=== PATIENT | female | born 2000 | race Caucasian/White ===

== ENCOUNTER 2022-09-14 11:48 | Emergency (ER) | payer OTHER, BC ==
[~2022-09-14] VITALS: Ht 165.1 cm; Wt 64.4 kg
== END 2022-09-14 15:49 | disposition home or self-care (01) ==
LOC: ER 11:48
DX: R53.1 Weakness (principal)

== ENCOUNTER 2022-11-07 08:06 | Emergency (ER) | payer OTHER ==
[~2022-11-07] VITALS: Ht 165.1 cm; Wt 63.5 kg
== END 2022-11-07 09:20 | disposition home or self-care (01) ==
LOC: ER 08:06
DX: K29.70 Gastritis, unspecified, without bleeding (principal)

== ENCOUNTER 2023-04-06 05:42 | Emergency (ER) | payer OTHER ==
[~2023-04-06] VITALS: Ht 165.1 cm; Wt 65.3 kg
== END 2023-04-06 13:01 | disposition home or self-care (01) ==
LOC: ER 05:42
PROVIDERS: General Practice
DX: R00.2 Palpitations (principal); J45.909 Unspecified asthma, uncomplicated

== ENCOUNTER 2024-09-26 09:22 | Outpatient (CLI) | payer BC | END 2024-09-26 09:31 | disposition home or self-care (01) | LOC: MRI 09:22 | DX: M54.2 Cervicalgia (principal) | CPT/HCPCS: 72156 ==